=== PATIENT | female | born 1965 | race African-American/Black ===

== ENCOUNTER 2019-05-05 22:20 | Emergency (ER) | payer OTHER ==
[~2019-05-05] VITALS: Ht 170.2 cm; Wt 104.3 kg
[2019-05-05 22:37] VITALS: BP_SYST 165
== END 2019-05-05 23:18 | disposition left against medical advice (07) ==
LOC: SED 22:20
DX: L50.9 Urticaria, unspecified (principal); Z53.21 Procedure and treatment not carried out due to patient leaving prior to being seen by health care provider

== ENCOUNTER 2020-04-02 18:15 | Emergency (ER) | payer OTHER ==
[~2020-04-02] VITALS: Ht 170.2 cm; Wt 89.4 kg
[2020-04-02 18:15] VITALS: BP_SYST 149
--- NOTE | 2020-04-02 18:27 | NUR ---
Patient to ER bed 07 to gown for evaluation. Side rails up. Report given to JONN FLAHERTY
--- NOTE | 2020-04-02 18:39 | NUR ---
ZEKE SHARMA AT BEDSIDE FOR EVALUATION
--- NOTE | 2020-04-02 18:40 | NUR ---
Patient Ambulatory with cane to ER C/O alletgic reaction. Patient A&Ox4, afebrile, skin pink & warm, dyspnea, cough, chest pain, denies N/V/D. PT reports SOB, cough, chest pain after receiving cortisone injection today.
[2020-04-02] MEDS ORDERED: EPINEPHrine 1 MG/ML AMP SUBCUT ONE (18:45)
[2020-04-02] MEDS ORDERED: DIPHENHYDRAMINE INJ 50 MG/ML VIAL IVP ONE (18:45)
[2020-04-02] MEDS ORDERED: FAMOTIDINE PF 20 MG/2 ML VIAL IVP ONE (18:45)
[2020-04-02] MEDS ORDERED: NACL 0.9% 1,000 ML IV ONE (18:45)
--- NOTE | 2020-04-02 19:15 | NUR ---
received report from JONN Lake for continuation of care.
--- NOTE | 2020-04-02 19:15 | NUR ---
report to Beth LUNSFORD
[2020-04-02 19:26] LABS: BASOPHILS % (AUTO) 0.5 % (0.0-2.0); EOSINOPHILS # (AUTO) 0.1 K/uL (0.0-0.4); EOSINOPHILS % (AUTO) 0.9 % (0.0-4.0); HEMATOCRIT 36.3 % (36-48); HEMOGLOBIN 11.9 g/dL (12.0-16.0); LYMPHOCYTES # (AUTO) 2.7 K/uL (1.0-5.5); LYMPHOCYTES % (AUTO) 46.5 % (20.5-51.5); MEAN CORPUSCULAR HEMOGLOBIN 28 pg (27-31); MEAN CORPUSCULAR HGB CONC 33 % (32-36); MEAN CORPUSCULAR VOLUME 86 fL (79.0-98.0); MONOCYTES # (AUTO) 0.6 K/uL (0.0-1.0); MONOCYTES % (AUTO) 10.7 % (1.7-9.3); NEUTROPHILS # (AUTO) 2.4 K/uL (1.8-7.7); NEUTROPHILS % (AUTO) 41.4 % (40.0-70.0); PLATELET COUNT (AUTO) 301 K/uL (130-430); RED BLOOD CELL COUNT(AUTO) 4.24 MIL/uL (4.2-6.2); WHITE BLOOD COUNT (AUTO) 5.8 K/uL (4.8-10.8)
[2020-04-02 19:42] LABS: CALCIUM 8.7 mg/dL (8.4-11.0); CREATININE 0.9 mg/dL (0.55-1.30); POTASSIUM 3.7 mmol/L (3.5-5.1)
[2020-04-02 19:47] LABS: TOTAL BILIRUBIN 0.4 mg/dL (0.0-1.0)
--- NOTE | 2020-04-02 20:03 | NUR ---
PATIENT AMBULATED TO RESTROOM WITH STEADY GAIT.
--- NOTE | 2020-04-02 20:16 | NUR ---
PATIENT REPORTS HER SYMPTOMS HAVE IMPROVED. HER SHORTNESS OF BREATH, ANXIETY, AND SHAKINESS HAVE RESOLVED.
--- NOTE | 2020-04-02 21:02 | NUR ---
ZEKE SHARMA AT BEDSIDE SPEAKING WITH PATIENT.
--- NOTE | 2020-04-02 22:08 | NUR ---
Patient given written and verbal discharge instructions and verbalizes understanding. ER MD discussed with patient the results and treatment provided. Patient in stable condition. ID arm band removed. IV catheter removed intact and dressing applied, no active bleeding. Rx of Benadryl,Pepcid given. Patient educated on pain management and to follow up with PMD. Pain Scale 0/10. Opportunity for questions provided and answered. Medication side effect fact sheet provided.
[2020-04-02 22:12] VITALS: BP_SYST 130
== END 2020-04-02 22:12 | disposition home or self-care (01) ==
LOC: SED 18:15
DX: T78.40XA Allergy, unspecified, initial encounter (principal); Z88.1 Allergy status to other antibiotic agents; Z88.6 Allergy status to analgesic agent; X58.XXXA Exposure to other specified factors, initial encounter
CPT/HCPCS: 36415; 71045; 80053; 84484; 85025; 85379; 93005; 96361; 96372; 96374; 96375; 99285; J0171; J1200; J3490; J7030